=== PATIENT | female | born 1975 | race American Indian/Alaskan Native ===

== ENCOUNTER 2023-07-20 04:54 | Emergency (ER) | payer BC ==
[2023-07-20 05:12] VITALS: BP 123/77; BMI 45.7
[2023-07-20] MEDS ORDERED: oxyCODONE HCL 5 MG TABLET PO ONE (05:51)
[2023-07-20] MEDS ORDERED: AMOX TR/POT CLAV 875MG/125MG TABLETS (FP) PO ONE (05:52)
[2023-07-20] MEDS ORDERED: oxyCODONE HCL 5 MG TABLET ONE (05:55)
[2023-07-20] MEDS ORDERED: AMOX TR/POT CLAV 875MG/125MG TABLETS (FP) ONE (05:55)
[2023-07-20 07:06] VITALS: PULSE 76; RESP 20
== END 2023-07-20 07:06 | disposition home or self-care (01) ==
LOC: JER 04:54
DX: K08.89 Other specified disorders of teeth and supporting structures (principal); R68.84 Jaw pain
CPT/HCPCS: 84703; 99283-25